=== PATIENT | female | born 1975 | race Hispanic/Latino ===

== ENCOUNTER 2017-10-02 18:28 | Emergency (ER) | payer SELFPAY ==
[2017-10-02 19:52] LABS: Bilirubin Negative (Negative); Blood, Urine Moderate (Negative); Clarity CLOUDY (Clear); Glucose, Urine (Dipstick) Negative (Negative); Leukocyte Large (Negative); Nitrite Positive (Negative); Protein, Urine (Dipstick) Negative (Neg-Trace); Specific Gravity, Urine 1.013 (1.002-1.036)
[2017-10-02 19:56] LABS: Bacteria/HPF 1+ HPF (None Seen); Hyaline Casts/LPF 0-3 HYALINE CAST LPF (0-3 Hyaline); Pathc Cast-AUWi Flag 0.67 (0-2.49); Squamous Epithelial None Seen HPF (0-3)
[2017-10-02] MEDS ORDERED: Ketorolac Tromethamine 30 MG/ML VIAL ONE (20:39)
[2017-10-02] MEDS ORDERED: Ondansetron HCl/PF 4 MG/2 ML Vial ONE (20:40)
[2017-10-02 20:53] LABS: #Basophils 0.1 thou/uL (0.0-0.2); #Eosinphils 0.1 thou/uL (0.0-0.7); #Lymphocytes 2.6 thou/uL (1.20-3.40); #Monocytes 0.6 thou/uL (0.11-0.59); #Neutrophils 5.6 thou/uL (1.40-6.50); %Eosinophils 0.7 % (0.0-10.0); %Monocytes 6.8 % (0.0-10.0); %Neutrophils 62.5 % (42.0-75.0); Hemoglobin 13.1 g/dL (12.0-16.0); Mean Corpuscular Hemoglobin 31.3 pg (27.0-31.0); Mean Corpuscular Volume 92.2 fl (81.0-99.0); Mean Platelet Volume 8.5 fL (7.4-10.4); Platelet Count 225 thou/uL (130-400); RBC Distribution Width 12.2 % (11.5-14.5); Red Blood Cell (RBC) Count 4.17 mill/uL (4.20-5.40)
[2017-10-02] MEDS ORDERED: cefTRIAXone\\ROCEPHIN 2 GM in Sodium Chloride 0.9% 100 ML IVPB SCH (21:15)
[2017-10-02 21:19] LABS: ALT (SGPT) 16 U/L (8-55); AST (SGOT) 32 U/L (5-34); Albumin 3.9 g/dL (3.5-5.0); Alkaline Phosphatase 95 U/L (40-150); Anion Gap 14 mmol/L (10-20); BUN (Urea Nitrogen) 14 mg/dL (7.0-18.7); Bilirubin, Total 0.2 mg/dL (0.2-1.2); Calc. Creatinine Clearance 0 mL/min (70-130); Calcium 9.1 mg/dL (7.8-10.44); Carbon Dioxide 22 mmol/L (22-29); Chloride 107 mmol/L (98-107); Estimated GFR-MDRD 76; Globulin 3.5 g/dL (2.4-3.5); Glucose 84 mg/dL (70-105); Lipase 29 U/L (8-78); Potassium 4.9 mmol/L (3.5-5.1); Protein, Total 7.4 g/dL (6.0-8.3); Sodium 138 mmol/L (136-145)
--- NOTE | 2017-10-02 22:32 | CT ---
ABDOMEN AND PELVIC CT SCAN WITHOUT IV CONTRAST: 10/02/17 HISTORY: 42-year-old female with pain and burning with urination and flank pain. COMPARISON: 05/07/16. FINDINGS: The lung bases are clear. Liver, gallbladder, pancreas, spleen and adrenal glands are unremarkable. S everal nonobstructing right lower pole renal calculi. No evidence for acute obstruction. No CT dawson dence for acute appendicitis. Surgical clips overlie the lower right retroperitoneum region. No bowel obstruction. No abscess or abnormal fluid collection. IMPRESSION: Small nonobstructing right renal calculi. No evidence for acute obstruction. No CT evidence for ac [place] appendicitis. POS: [facility]
[2017-10-02] MEDS ORDERED: Phenazopyridine HCl 97.5 MG TABLET ONE (22:47)
[2017-10-02] MEDS ORDERED: HYDROcodone/Acetaminophen 5/325 mg Tablet ONE (22:59)
== END 2017-10-02 23:14 | disposition home or self-care (01) ==
LOC: ERS 18:28
DX: N12 Tubulo-interstitial nephritis, not specified as acute or chronic (principal); N20.0 Calculus of kidney
CPT/HCPCS: 74176; 80053; 81003; 81015; 83690; 85025; 87077; 87086; 87186; 96365; 96375; J0696; J1885; J2270; J2405; J7050

== ENCOUNTER 2018-01-25 00:33 | Emergency (ER) | payer SELFPAY ==
[2018-01-25] MEDS ORDERED: Acetaminophen 500 MG TAB ONE ×2 (01:02→01:19)
[2018-01-25 01:17] LABS: Bilirubin Negative (Negative); Blood, Urine Small (Negative); Clarity Clear (Clear); Glucose, Urine (Dipstick) Negative (Negative); Leukocyte Trace (Negative); Nitrite Negative (Negative); Protein, Urine (Dipstick) Negative (Neg-Trace); Specific Gravity, Urine 1.025 (1.005-1.030); Urobilinogen 0.2 mg/dL (0.2-1.0)
[2018-01-25 01:18] LABS: Pregnancy Test - Urine (BHCG) Negative (Negative); Pregu Control Background? CLEAR/WHITE (CLR/WHITE); Pregu Control Bar Appear? YES (CONTROL BAR); Specific Gravity 1.025 (1.002-1.036)
[2018-01-25 01:28] LABS: Bacteria/HPF None Seen HPF (None Seen); Hyaline Casts/LPF NONE SEEN LPF (0-3 Hyaline); RBC/HPF 0-3 HPF (0-3); Squamous Epithelial 0-3 HPF (0-3)
[2018-01-25 01:41] LABS: #Basophils 0.1 thou/uL (0.0-0.2); #Lymphocytes 0.6 thou/uL (1.20-3.40); #Monocytes 0.4 thou/uL (0.11-0.59); #Neutrophils 6.3 thou/uL (1.40-6.50); %Basophils 0.8 % (0.0-1.0); %Eosinophils 0.4 % (0.0-10.0); %Lymphocytes 8.4 % (21.0-51.0); %Monocytes 5.4 % (0.0-10.0); Hemoglobin 13.5 g/dL (12.0-16.0); Mean Corpuscular HGB CONC 34.8 g/dL (32.0-36.0); Mean Corpuscular Volume 88.9 fl (81.0-99.0); Mean Platelet Volume 8.5 fL (7.4-10.4); Platelet Count 214 thou/uL (130-400); RBC Distribution Width 12.3 % (11.5-14.5); Red Blood Cell (RBC) Count 4.36 mill/uL (4.20-5.40); White Blood Cell (WBC) Count 7.4 thou/uL (4.8-10.8)
[2018-01-25] MEDS ORDERED: Ketorolac Tromethamine 30 MG/ML VIAL ONE (01:41)
[2018-01-25 01:47] LABS: BHCG - Serum Negative (NEGATIVE); Pregs Control Background? CLEAR/WHITE (CLR/WHITE); Pregs Control Bar Appear? YES (CONTROL BAR)
[2018-01-25] MEDS ORDERED: Famotidine/PF 20 mg/2ml Vial ONE (01:57)
[2018-01-25] MEDS ORDERED: Ondansetron HCl/PF 4 MG/2 ML Vial ONE (01:57)
[2018-01-25 02:12] LABS: ALT (SGPT) 15 U/L (8-55); AST (SGOT) 18 U/L (5-34); Alkaline Phosphatase 96 U/L (40-150); Anion Gap 13 mmol/L (10-20); BUN (Urea Nitrogen) 14 mg/dL (7.0-18.7); Bilirubin, Total 0.3 mg/dL (0.2-1.2); Calc. Creatinine Clearance 0 mL/min (70-130); Calcium 9.5 mg/dL (7.8-10.44); Carbon Dioxide 24 mmol/L (22-29); Chloride 105 mmol/L (98-107); Estimated GFR-MDRD 77; Glucose 92 mg/dL (70-105); Potassium 3.7 mmol/L (3.5-5.1); Sodium 138 mmol/L (136-145)
[2018-01-25] MEDS ORDERED: Nitrofurantoin Macrocrystal 50 MG CAP ONE (02:20)
== END 2018-01-25 02:31 | disposition home or self-care (01) ==
LOC: SCSER 00:33
DX: N39.0 Urinary tract infection, site not specified (principal); Z79.899 Other long term (current) drug therapy
CPT/HCPCS: 80053; 81003; 81015; 81025; 84703; 85025; 87086; 87804; 96361; 96374; 96375; J1885; J2405; S0028

== ENCOUNTER 2018-10-05 22:40 | Emergency (ER) | payer SELFPAY ==
[2018-10-05] MEDS ORDERED: Ondansetron ODT 4 MG TAB ONE (22:59)
[2018-10-05 23:06] LABS: Bilirubin Negative (Negative); Blood, Urine Moderate (Negative); Clarity CLEAR (Clear); Glucose, Urine (Dipstick) Negative (Negative); Leukocyte Moderate (Negative); Nitrite Negative (Negative); Protein, Urine (Dipstick) Negative (Neg-Trace); Specific Gravity, Urine 1.004 (1.002-1.036); Urobilinogen 0.2 mg/dL (0.2-1.0)
[2018-10-05 23:08] LABS: Hemoglobin 13.6 g/dL (12.0-16.0); Mean Corpuscular HGB CONC 33.4 g/dL (32.0-36.0); Mean Corpuscular Hemoglobin 30.5 pg (27.0-31.0); Mean Corpuscular Volume 91.4 fL (78.0-98.0); Mean Platelet Volume 8.3 fL (7.4-10.4); Platelet Count 228 thou/uL (130-400); RBC Distribution Width 11.7 % (11.5-14.5); Red Blood Cell (RBC) Count 4.46 mill/uL (4.20-5.40)
[2018-10-05 23:09] LABS: Bacteria/HPF None Seen HPF (None Seen); Hyaline Casts/LPF 0-3 HYALINE CAST LPF (0-3 Hyaline); Pathc Cast-AUWi Flag 0.14 (0-2.49); Squamous Epithelial 0-3 HPF (0-3)
[2018-10-05 23:22] LABS: Eosinophils 2 % (0-10); Lymphocytes 47 % (21-51); MDiff Complete? YES; Monocytes 6 % (0-10); Neutrophil 36 % (42-75); Reactive Lymphocytes 9 % (0-10)
[2018-10-05 23:23] LABS: ALT (SGPT) 25 U/L (8-55); AST (SGOT) 46 U/L (5-34); Albumin 4.3 g/dL (3.5-5.0); Alkaline Phosphatase 140 U/L (40-150); Anion Gap 13 mmol/L (10-20); BUN (Urea Nitrogen) 13 mg/dL (7.0-18.7); Bilirubin, Total 0.2 mg/dL (0.2-1.2); Calc. Creatinine Clearance 0 mL/min (70-130); Calcium 9.9 mg/dL (7.8-10.44); Carbon Dioxide 29 mmol/L (22-29); Chloride 103 mmol/L (98-107); Estimated GFR-MDRD 60; Globulin 3.3 g/dL (2.4-3.5); Glucose 98 mg/dL (70-105); Potassium 4.4 mmol/L (3.5-5.1); Protein, Total 7.6 g/dL (6.0-8.3); Sodium 141 mmol/L (136-145)
[2018-10-06] MEDS ORDERED: HYDROcodone/Acetaminophen 5/325 mg Tablet ONE
[2018-10-06] MEDS ORDERED: cefTRIAXone\\ROCEPHIN 1 GM VIAL ONE
[2018-10-06] MEDS ORDERED: Lidocaine 1% PF 5 ML VIAL ONE (00:01)
== END 2018-10-06 00:25 | disposition home or self-care (01) ==
LOC: ERS 22:40
DX: N39.0 Urinary tract infection, site not specified (principal)
CPT/HCPCS: 36415; 80053; 81003; 81015; 85025; 87086; 96372; J0696; J2001; Q0162

== ENCOUNTER 2019-05-11 07:39 | Outpatient (CLI) | payer OTHER ==
--- NOTE | 2019-05-11 08:13 | ULT ---
EXAM: US Hepatic Doppler PROVIDED CLINICAL HISTORY: Abnormal liver function tests. COMPARISON: Abdominal ultrasound 05/06/2018. FINDINGS: Limited visualized portions of the pancreas, visualized portions of the IVC, abdominal aorta, liver, spleen, and gallbladder demonstrate a normal sonographic appearance. The right kidney is partially imaged and where visualized has a normal normal sonographic appearance. The common duct measures 0.3 cm in diameter. Hepatic Doppler evaluation with spectral analysis and color flow evaluation demonstrates normal direc tional flow within the hepatic, portal, and splenic veins. Arterial Doppler waveforms are noted within the hepatic and splenic arteries. IMPRESSION: 1. No acute findings are seen on this hepatic Doppler examination. Normal directional flow is demonst rated within the splenic, hepatic, and portal veins.
== END 2019-05-11 07:40 | disposition home or self-care (01) ==
LOC: BICULT 07:39
PROVIDERS: ATTEND Internal Medicine Gastroenterology
DX: K59.09 Other constipation (principal); R94.5 Abnormal results of liver function studies
CPT/HCPCS: 76705

== ENCOUNTER 2020-02-09 00:13 | Emergency (ER) | payer SELFPAY ==
[2020-02-09 01:10] LABS: Bacteria/HPF None Seen HPF (None Seen); Bilirubin Negative (Negative); Blood, Urine 1+ (Negative); Clarity Clear (Clear); Glucose, Urine (Dipstick) Normal (Negative); Leukocyte Negative Leu/uL (Negative); Nitrite Negative (Negative); Protein, Urine (Dipstick) Negative (Neg-Trace); Squamous Epithelial None Seen HPF (0-3); Urobilinogen Normal mg/dL (Less than 2); WBC/HPF 0-3 HPF (0-3)
[2020-02-09 01:11] LABS: #Lymphocytes 1.6 thou/uL (1.20-3.40); #Monocytes 0.2 thou/uL (0.11-0.59); #Neutrophils 8.4 thou/uL (1.40-6.50); %Basophils 0.5 % (0.0-1.0); %Eosinophils 0.4 % (0.0-10.0); %Lymphocytes 15.4 % (21.0-51.0); %Neutrophils 81.7 % (42.0-75.0); Hemoglobin 13.5 g/dL (12.0-16.0); Mean Corpuscular Hemoglobin 30.7 pg (27.0-31.0); Mean Corpuscular Volume 90.3 fL (78.0-98.0); Mean Platelet Volume 8.2 fL (7.4-10.4); Platelet Count 198 thou/uL (130-400); RBC Distribution Width 12.4 % (11.5-14.5); Red Blood Cell (RBC) Count 4.39 mill/uL (4.20-5.40); White Blood Cell (WBC) Count 10.2 thou/uL (4.8-10.8)
[2020-02-09 01:11] LABS: Pregnancy Test - Urine (BHCG) Negative (Negative); Pregu Control Background? CLEAR/WHITE (CLR/WHITE); Pregu Control Bar Appear? YES (CONTROL BAR)
[2020-02-09] MEDS ORDERED: Morphine 4 MG/ML VIAL ONE (01:18)
[2020-02-09] MEDS ORDERED: Ondansetron PF 4 MG/2 ML Vial ONE (01:18)
[2020-02-09 01:33] LABS: ALT (SGPT) 39 U/L (8-55); AST (SGOT) 78 U/L (5-34); Albumin 4.3 g/dL (3.5-5.0); Alkaline Phosphatase 125 U/L (40-110); Anion Gap 11 mmol/L (10-20); BUN (Urea Nitrogen) 16 mg/dL (7.0-18.7); Bilirubin, Total 0.3 mg/dL (0.2-1.2); Calc. Creatinine Clearance 0 mL/min (70-130); Calcium 9.5 mg/dL (7.8-10.44); Carbon Dioxide 31 mmol/L (22-29); Chloride 104 mmol/L (98-107); Estimated GFR-MDRD 65; Globulin 3.1 g/dL (2.4-3.5); Glucose 96 mg/dL (70-105); Lipase 21 U/L (8-78); Potassium 3.8 mmol/L (3.5-5.1); Protein, Total 7.4 g/dL (6.0-8.3); Sodium 142 mmol/L (136-145)
[2020-02-09] MEDS ORDERED: Ketorolac Tromethamine 30 MG/ML VIAL ONE (03:05)
--- NOTE | 2020-02-09 07:48 | ULT ---
PRELIMINARY REPORT/[facility]/EMERGENCY AFTER HOURS PROCEDURE: EXAM: US Abdomen Limited, Right Upper Quadrant. CLINICAL HISTORY: Epigastric pain that radiates to back, nauses TECHNIQUE: Real-time ultrasound of the right upper quadrant with image documentation. COMPARISON: None provided. FINDINGS: LIVER: Unremarkable. GALLBLADDER: No gallstone. No wall thickening. No pericholecystic fluid. COMMON BILE DUCT: No dilation. PANCREAS: Unremarkable as visualized. The distal pancreas is obscured by overlying bowel gas. RIGHT KIDNEY: Unremarkable. No hydronephrosis. IMPRESSION: Unremarkable right upper quadrant ultrasound. ELECTRONICALLY SIGNED BY: Ervin Sosa MD Feb 09, 2020 2:09:50 AM CDT FINAL REPORT EMERGENCY AFTER HOURS STUDY: ULTRASOUND ABDOMEN LIMITED: (RIGHT UPPER QUADRANT) DATE: 02/09/2020 HISTORY: Epigastric pain and nausea in 44-year-old female. FINDINGS: Gallbladder: Normal wall thickness. No gallstones or sludge identified. No pericholecystic fluid. Liver: Normal parenchymal echogenicity. Right kidney: No hydronephrosis. Pancreas: Visualized, with no gross sonographic abnormality identified (although ultrasound is relati vely insensitive for the detection of pancreatic pathology compared to CT and MRI.). Common duct caliber: 4 mm. Agree with preliminary report by [facility]. IMPRESSION: Normal. Transcribed Date/Time: 02/09/2020 8:20 AM
== END 2020-02-09 03:17 | disposition home or self-care (01) ==
LOC: ERS 00:13
DX: R10.13 Epigastric pain (principal); R31.9 Hematuria, unspecified; R10.11 Right upper quadrant pain
CPT/HCPCS: 36415; 76705; 80053; 81003; 81015; 81025; 83690; 85025; 93005; 96374; 96375; J1885; J2270; J2405

== ENCOUNTER 2020-03-02 17:21 | Emergency (ER) | payer OTHER, SELFPAY ==
[2020-03-03 14:20] LABS: SARS-CoV-2 MS2 Positive; SARS-CoV-2 N Gene Negative; SARS-CoV-2 S Gene Negative; SARS-CoV-2 orf1ab Negative
== END 2020-03-02 18:23 ==
LOC: ERS 17:21
DX: R05 Cough (principal); R68.83 Chills (without fever); Z20.828 Contact with and (suspected) exposure to other viral communicable diseases
CPT/HCPCS: 87635; 99283; U0003

== ENCOUNTER 2020-08-18 14:54 | Outpatient (CLI) | payer OTHER ==
--- NOTE | 2020-08-18 15:24 | MMO ---
Bilateral MAMMO Bilat Screen [facility]. CLINICAL HISTORY: Patient is 45 years old and is seen for screening. The patient has no family history of breast cancer. The patient has no personal history of cancer. The patient has a history of left Excisional Biopsy in ?16 - benign. VIEWS: The views performed were: bilateral craniocaudal with tomosynthesis and bilateral mediolateral oblique with tomosynthesis. FILMS COMPARED: The present examination has been compared to prior imaging studies performed at [facility] on 09/08/2014 and 02/02/2016. This study has been interpreted with the assistance of computer-aided detection. MAMMOGRAM FINDINGS: The breasts are heterogeneously dense, which could obscure a lesion on mammography. There are stable benign appearing calcifications seen in both breasts. There are no suspicious masses, suspicious calcifications, or new areas of architectural distortion. IMPRESSION: THERE IS NO MAMMOGRAPHIC EVIDENCE OF MALIGNANCY. A ROUTINE FOLLOW-UP MAMMOGRAM IN 1 YEAR IS RECOMMENDED. THE RESULTS OF THIS EXAM WERE SENT TO THE PATIENT. ACR BI-RADS Category 2 - Benign finding MAMMOGRAPHY NOTE: 1. A negative mammogram report should not delay a biopsy if a dominant of clinically suspicious mass is present. 2. Approximately 10% to 15% of breast cancers are not detected by mammography. 3. Adenosis and dense breasts may obscure an underlying neoplasm. Reported by: SIDNEY RODRIGUEZ MD Electonically Signed: [id number]
== END 2020-08-18 14:55 | disposition home or self-care (01) ==
LOC: BICMAMMO 14:54
PROVIDERS: ATTEND Physician Assistant
DX: Z12.31 Encounter for screening mammogram for malignant neoplasm of breast (principal)
CPT/HCPCS: 77063; 77067

== ENCOUNTER 2020-10-20 20:22 | Emergency (ER) | payer SELFPAY ==
[2020-10-20] MEDS ORDERED: Ketorolac Tromethamine 30 MG/ML VIAL ONE (21:21)
--- NOTE | 2020-10-20 21:45 | RAD ---
Portable frontal chest radiograph: 10/20/2020 COMPARISON: 06/04/2014 HISTORY: Body aches with fever and chills FINDINGS: Lungs are clear. Heart and mediastinal contours appear within normal limits. IMPRESSION: No acute findings.
[2020-10-20 21:47] LABS: #Basophils 0.1 thou/uL (0.0-0.2); #Lymphocytes 1.1 thou/uL (1.20-3.40); #Monocytes 0.7 thou/uL (0.11-0.59); #Neutrophils 4.2 thou/uL (1.40-6.50); %Basophils 0.9 % (0.0-1.0); %Eosinophils 0.8 % (0.0-10.0); %Monocytes 11.7 % (0.0-10.0); %Neutrophils 68.6 % (42.0-75.0); Mean Corpuscular HGB CONC 32.3 g/dL (32.0-36.0); Mean Corpuscular Hemoglobin 29.3 pg (27.0-31.0); Mean Corpuscular Volume 90.8 fL (78.0-98.0); Mean Platelet Volume 8.2 fL (7.4-10.4); Platelet Count 228 thou/uL (130-400); RBC Distribution Width 11.7 % (11.5-14.5); Red Blood Cell (RBC) Count 4.44 mill/uL (4.20-5.40); White Blood Cell (WBC) Count 6.2 thou/uL (4.8-10.8)
[2020-10-20 21:51] LABS: BHCG - Serum Negative (NEGATIVE); Pregs Control Background? CLEAR/WHITE (CLR/WHITE); Pregs Control Bar Appear? YES (CONTROL BAR)
[2020-10-20 22:05] LABS: ALT (SGPT) 15 U/L (8-55); AST (SGOT) 22 U/L (5-34); Albumin 3.8 g/dL (3.5-5.0); Alkaline Phosphatase 139 U/L (40-110); Anion Gap 9 mmol/L (10-20); BUN (Urea Nitrogen) 12 mg/dL (7.0-18.7); Bilirubin, Total Less than 0.2 mg/dL (0.2-1.2); Calc. Creatinine Clearance 0 mL/min (70-130); Calcium 8.6 mg/dL (7.8-10.44); Carbon Dioxide 28 mmol/L (22-29); Chloride 107 mmol/L (98-107); Globulin 2.9 g/dL (2.4-3.5); Glucose 90 mg/dL (70-105); Potassium 4.4 mmol/L (3.5-5.1); Protein, Total 6.7 g/dL (6.0-8.3); Sodium 140 mmol/L (136-145)
[2020-10-21 04:16] LABS: SARS-CoV-2 PCR by NAA DETECTED (NotDetected)
== END 2020-10-20 23:10 | disposition home or self-care (01) ==
LOC: ERS 20:22
DX: U07.1 COVID-19 (principal)
CPT/HCPCS: 36415; 71045; 80053; 84703; 85025; 87635; 87804; 96372; J1885; U0003; U0005

== ENCOUNTER 2020-10-27 17:36 | Emergency (ER) | payer SELFPAY ==
[~2020-10-27 17:36] MED LIST: Iopamidol-370 76% 500 ML 1 ML ONE
[2020-10-27 19:10] LABS: #Lymphocytes 1.8 thou/uL (1.20-3.40); #Monocytes 0.3 thou/uL (0.11-0.59); #Neutrophils 4.2 thou/uL (1.40-6.50); %Basophils 0.1 % (0.0-1.0); %Eosinophils 0.1 % (0.0-10.0); %Lymphocytes 29.2 % (21.0-51.0); %Monocytes 4.1 % (0.0-10.0); %Neutrophils 66.5 % (42.0-75.0); Hemoglobin 13.4 g/dL (12.0-16.0); Mean Corpuscular Hemoglobin 30.4 pg (27.0-31.0); Mean Corpuscular Volume 89.5 fL (78.0-98.0); Mean Platelet Volume 8.7 fL (7.4-10.4); Platelet Count 173 thou/uL (130-400); RBC Distribution Width 11.6 % (11.5-14.5); Red Blood Cell (RBC) Count 4.41 mill/uL (4.20-5.40); White Blood Cell (WBC) Count 6.2 thou/uL (4.8-10.8)
--- NOTE | 2020-10-27 19:12 | RAD ---
ONE VIEW CHEST: 10/27/20 HISTORY: Shortness of breath and chest tightness. Pain all over. Cough. COVID positive. COMPARISON: 10/20/20. FINDINGS: The cardiac silhouette and pulmonary vasculature are within normal limits. The lungs are clear. No co nsolidation or pleural fluid is seen. Osseous structures have a normal appearance. No interval change from prior exam. IMPRESSION: No acute cardiopulmonary process. Radiographs exhibit low sensitivity for subtle ground glass opaciti es which can be seen with viral pneumonitis such as COVID pneumonia. POS: [facility]
[2020-10-27] MEDS ORDERED: Acetaminophen 500 MG TAB ONE (19:13)
[2020-10-27] MEDS ORDERED: Aspirin Chewable 81 MG TAB ONE (19:13)
[2020-10-27] MEDS ORDERED: Dexamethasone 4 mg/ml Vial ONE (19:13)
[2020-10-27 19:35] LABS: ALT (SGPT) 58 U/L (8-55); AST (SGOT) 79 U/L (5-34); Albumin 3.6 g/dL (3.5-5.0); Alkaline Phosphatase 113 U/L (40-110); Anion Gap 11 mmol/L (10-20); BUN (Urea Nitrogen) 10 mg/dL (7.0-18.7); Bilirubin, Total 0.2 mg/dL (0.2-1.2); CK (CPK) 55 U/L (29-168); Calc. Creatinine Clearance 0 mL/min (70-130); Calcium 8.4 mg/dL (7.8-10.44); Carbon Dioxide 24 mmol/L (22-29); Chloride 108 mmol/L (98-107); Globulin 2.8 g/dL (2.4-3.5); Glucose 90 mg/dL (70-105); Lipase 20 U/L (8-78); Potassium 4.3 mmol/L (3.5-5.1); Protein, Total 6.4 g/dL (6.0-8.3); Sodium 139 mmol/L (136-145)
[2020-10-27] MEDS ORDERED: Famotidine/PF 20 mg/2ml Vial ONE (19:43)
[2020-10-27] MEDS ORDERED: diphenhydrAMINE 50 MG/ML VIAL ONE (19:43)
[2020-10-27] MEDS ORDERED: methylPREDNISolone Sod Succ/PF 125 MG/2 ML VIAL ONE (19:43)
--- NOTE | 2020-10-27 20:44 | CT ---
Exam: CT angiogram of the chest HISTORY: Evaluate for pulmonary artery embolism. COVID patient. COMPARISON: None TECHNIQUE: CT angiogram of the chest is performed in the axial plane. Three-dimensional reformatted i mages are submitted for interpretation FINDINGS: Mediastinum: No mass, lymphadenopathy or hematoma. Heart: Normal size. No significant pericardial fluid. Aorta: No aneurysm or dissection Upper solid abdominal viscera: No abnormality enhancement. Trachea and central bronchi: Patent Pleural spaces: No effusion Lung parenchyma: There are dependent atelectatic changes with additional peripheral groundglass opaci ties. Pneumothorax: None Osseous structures: No lytic or blastic lesions Pulmonary arteries: Adequate contrast opacification pulmonary arterial system to the level of segment al arteries. No filling defect to suggest pulmonary embolism IMPRESSION: 1. No evidence of pulmonary artery embolism to the level segmental arteries 2. Multifocal predominantly peripheral groundglass opacities, keeping with the patient's positive COV ID status post. Multilevel focal COVID pneumonia.
[2020-10-27 20:52] LABS: Bacteria/HPF None Seen HPF (None Seen); Bilirubin Negative (Negative); Blood, Urine Negative (Negative); Clarity Clear (Clear); Glucose, Urine (Dipstick) Normal (Negative); Ketone, Urine Trace mg/dL (Negative); Leukocyte 250 Leu/uL (Negative); Nitrite Negative (Negative); Protein, Urine (Dipstick) Negative (Neg-Trace); RBC/HPF 0-3 HPF (0-3); Specific Gravity, Urine 1.011 (1.002-1.036); Squamous Epithelial 0-3 HPF (0-3); Urobilinogen Normal mg/dL (Less than 2); WBC/HPF 0-3 HPF (0-3); pH, Urine 7.5 (5.0-9.0)
== END 2020-10-27 21:11 | disposition home or self-care (01) ==
LOC: ERS 17:36
DX: U07.1 COVID-19 (principal)
CPT/HCPCS: 36415; 71045; 71275; 80053; 81003; 81015; 82550; 83690; 84484; 85025; 85379; 93005; 96374; 96375; J1100; J1200; J2930; Q9967; S0028

== ENCOUNTER 2023-02-17 09:31 | Outpatient (CLI) | payer BC ==
[2023-02-17 11:06] LABS: #Eosinphils 0.1 10x3/uL (0.0-0.5); #Monocytes 0.3 10x3/uL (0.0-1.1); #Neutrophils 2.9 10x3/uL (1.5-8.4); %Basophils 0.4 % (0.0-2.0); %Eosinophils 0.9 % (0.0-6.0); %Lymphocytes 40.8 % (18.0-47.0); %Monocytes 6.1 % (0.0-10.0); %Neutrophils 51.6 % (40.0-75.0); Hemoglobin 13.2 g/dL (12.0-15.5); Mean Corpuscular HGB CONC 32.9 g/dL (32.0-36.0); Mean Corpuscular Hemoglobin 29.2 pg (27.0-33.0); Mean Corpuscular Volume 88.7 fl (81.6-98.3); Mean Platelet Volume 10.6 fl (7.4-10.4); Platelet Count 235 10x3/uL (150-450); RBC Distribution Width 13.2 % (11.5-14.5); Red Blood Cell (RBC) Count 4.52 10x6/uL (3.90-5.03); White Blood Cell (WBC) Count 5.6 10x3/uL (3.5-10.5)
[2023-02-17 11:31] LABS: Anion Gap 14 mmol/L (10-20); BUN (Urea Nitrogen) 20 mg/dL (7.0-18.7); Calc. Creatinine Clearance 0 mL/min (70-130); Calcium 9.6 mg/dL (7.8-10.44); Carbon Dioxide 25 mmol/L (22-29); Chloride 107 mmol/L (98-107); Estimated GFR 70; Glucose 88 mg/dL (70-105); Sodium 141 mmol/L (136-145)
== END 2023-02-17 09:32 | disposition home or self-care (01) ==
LOC: LABBT 09:31
PROVIDERS: ATTEND Surgery
DX: Z01.812 Encounter for preprocedural laboratory examination (principal); N63.20 Unspecified lump in the left breast, unspecified quadrant
CPT/HCPCS: 80048; 85025

== ENCOUNTER 2024-01-13 08:03 | Outpatient (CLI) | payer BC, OTHER | END 2024-01-13 08:04 | disposition home or self-care (01) | LOC: BICMAMMO 08:03 | PROVIDERS: ATTEND Family Medicine | DX: Z12.31 Encounter for screening mammogram for malignant neoplasm of breast (principal); Z91.89 Other specified personal risk factors, not elsewhere classified; Z98.890 Other specified postprocedural states | CPT/HCPCS: 77063; 77067 ==

== ENCOUNTER 2024-01-28 08:25 | Outpatient (CLI) | payer OTHER ==
[2024-01-28] MEDS ORDERED: E-Z-HD 98% W/W 340GM BOT (x-ray ONLY) ONE (08:47)
[2024-01-28] MEDS ORDERED: Barium Sulfate 96% 176 GM BOT (xray ONLY) ONE (08:47)
== END 2024-01-28 08:26 | disposition home or self-care (01) ==
LOC: RAD 08:25
PROVIDERS: ATTEND Pediatrics Pediatric Gastroenterology
DX: R10.10 Upper abdominal pain, unspecified (principal); R13.10 Dysphagia, unspecified; K44.9 Diaphragmatic hernia without obstruction or gangrene; K21.9 Gastro-esophageal reflux disease without esophagitis
CPT/HCPCS: 74246